=== PATIENT | male | born 1945 | race Hispanic/Latino ===

== ENCOUNTER → 2018-11-06 | Outpatient (CLI) | payer OTHER | END | disposition home or self-care (01) | LOC: OIH 13:25 | PROVIDERS: ATTEND Internal Medicine | DX: I10 Essential (primary) hypertension (principal); I70.0 Atherosclerosis of aorta | CPT/HCPCS: 71046 ==

== ENCOUNTER → 2019-02-14 | Outpatient (CLI) | payer OTHER | END | disposition home or self-care (01) | LOC: OIH 09:33 | PROVIDERS: ATTEND Internal Medicine | DX: M23.8X1 Other internal derangements of right knee (principal) | CPT/HCPCS: 73560 ==

== ENCOUNTER 2019-02-23 19:10 | Observation (INO) | payer OTHER ==
[~2019-02-23] VITALS: Ht 172.7 cm; Wt 102.1 kg
[2019-02-23 19:38] LABS: BASOPHILS % (AUTO) 1.3 % (0.0-5.0); EOSINOPHILS % (AUTO) 2.2 % (0.0-8.0); HEMATOCRIT 41.3 % (42-54); LYMPHOCYTES % (AUTO) 28.3 % (21.0-51.0); MEAN CORPUSCULAR HEMOGLOBIN 30.7 pg (27.0-33.0); MEAN CORPUSCULAR HGB CONC 33.5 g/dL (32.0-36.0); MEAN CORPUSCULAR VOLUME 91.5 fL (79-99); MONOCYTES % (AUTO) 9.2 % (3.0-13.0); PLATELET COUNT (AUTO) 234 K/uL (130-400); RED BLOOD CELL COUNT(AUTO) 4.52 MIL/uL (4.50-6.20); RED CELL DISTRIBUTION WIDTH 13.6 % (11.0-15.5); WHITE BLOOD COUNT (AUTO) 12.1 K/uL (4.8-10.8)
[2019-02-23 19:52] LABS: CREATININE 1.7 mg/dL (0.5-1.5); POTASSIUM 3.6 mmol/L (3.5-5.1)
[2019-02-23 19:54] LABS: INR 0.95 (0.85-1.15); PARTIAL THROMBOPLASTIN TIME 28.5 SEC (26.3-35.5)
[2019-02-23 19:56] LABS: ALBUMIN 3.2 g/dL (3.5-5.0); BILIRUBIN,TOTAL 0.3 mg/dL (0.2-1.0); TOTAL PROTEIN, SERUM 6.8 g/dL (6.0-8.3)
[2019-02-23 20:54] LABS: APPEARANCE,URINE Clear (CLEAR); BILIRUBIN,URINE Negative (NEGATIVE); COLOR,URINE Yellow (YELLOW); GLUCOSE, URINE (UA) Negative (NEGATIVE); KETONES,URINE Negative (NEGATIVE); LEUKOCYTE ESTERASE ,URINE Negative (NEGATIVE); NITRATE,URINE Negative (NEGATIVE); OCCULT BLOOD,URINE Negative (NEGATIVE); PH,URINE 5.5 (5.0-8.0); PROTEIN,URINE POS 1+ mg/dL (NEGATIVE); UROBILINOGEN,URINE 0.2 mg/dL (0.2-1.0)
[2019-02-23 21:18] LABS: BACTERIA,URINE None Seen /HPF (None Seen); MUCUS,URINE Few LPF (None Seen); RBC,URINE None Seen /HPF (0-1); SQUAMOUS EPITHELIAL CELL,UR 0-2 /HPF (0-2)
[2019-02-24 06:33] LABS: BASOPHILS % (AUTO) 0.5 % (0.0-5.0); EOSINOPHILS % (AUTO) 2.8 % (0.0-8.0); LYMPHOCYTES % (AUTO) 28.5 % (21.0-51.0); MEAN CORPUSCULAR HEMOGLOBIN 31.8 pg (27.0-33.0); MEAN CORPUSCULAR HGB CONC 34.7 g/dL (32.0-36.0); MEAN CORPUSCULAR VOLUME 91.6 fL (79-99); MONOCYTES % (AUTO) 8.6 % (3.0-13.0); NEUTROPHILS % (AUTO) 59.6 % (40.0-77.0); NUCLEATED RED BLOOD CELLS 0.1 % (0.0-0.19); PLATELET COUNT (AUTO) 214 K/uL (130-400); RED CELL DISTRIBUTION WIDTH 13.4 % (11.0-15.5); WHITE BLOOD COUNT (AUTO) 10.3 K/uL (4.8-10.8)
[2019-02-24 06:37] LABS: CREATININE 1.3 mg/dL (0.5-1.5); POTASSIUM 3.8 mmol/L (3.5-5.1)
[2019-02-24 10:38] LABS: CREATINE KINASE, TOTAL 196 U/L (21-232); MYOGLOBIN 151 ng/mL (10-92); TROPONIN I < 0.04 ng/mL (0.00-0.06)
--- NOTE | 2019-02-24 11:08 | NUR ---
ER ADMIT PATIENT RECEIVED FROM ER VIA WHEELCHAIR ACCOMPANIED BY . BOTH HAVE BEEN ORIENTED TO ROOM AND USE OF CALL LIGHT. PATIENT APPEARS COMFORTABLE, NO SIGNS OF DISTRESS NOTED. BED IS IN LOWEST POSITION AND LOCKED WITH PERSONAL BELONGINGS WITHIN REACH. DR. WADE IS IN THE ROOM ASSESSING PATIENT.
[2019-02-24] MEDS ORDERED: FINA5TAB41 PO (11:21)
[2019-02-24] MEDS ORDERED: LISI1TAB11 PO (11:21)
[2019-02-24 11:29] VITALS: BP 149/72
[2019-02-24] MEDS ORDERED: ALPRAZOLAM 0.25 MG TABLET PO SCH (11:30)
[2019-02-24] MEDS ORDERED: PNEUMOCOCCAL VACCINE POLYVALENT 0.5 ML/VIAL [PPV] IM SCH (11:45)
[2019-02-24] MEDS: HYDROCHLOROTHIAZIDE 25 MG TABLET PO SCH (11:56)
[2019-02-24] MEDS: LISINOPRIL 20 MG TABLET PO SCH (11:56)
[2019-02-24 16:18] VITALS: BP 138/77
[2019-02-24] MEDS: ACETAMINOPHEN 325 MG TAB PO PRN (16:37)
[2019-02-24 20:00] VITALS: BP 122/75
[2019-02-25 00:07] VITALS: BP 110/50
[2019-02-25 04:00] VITALS: BP 126/73
[2019-02-25] MEDS: ACETAMINOPHEN 325 MG TAB PO PRN (05:19)
[2019-02-25 05:41] LABS: BASOPHILS % (AUTO) 0.6 % (0.0-5.0); EOSINOPHILS % (AUTO) 1.3 % (0.0-8.0); HEMATOCRIT 46.1 % (42-54); LYMPHOCYTES % (AUTO) 21.3 % (21.0-51.0); MEAN CORPUSCULAR HEMOGLOBIN 30.4 pg (27.0-33.0); MEAN CORPUSCULAR HGB CONC 33.1 g/dL (32.0-36.0); MEAN CORPUSCULAR VOLUME 91.7 fL (79-99); MONOCYTES % (AUTO) 7.4 % (3.0-13.0); NEUTROPHILS % (AUTO) 69.4 % (40.0-77.0); PLATELET COUNT (AUTO) 263 K/uL (130-400); RED BLOOD CELL COUNT(AUTO) 5.02 MIL/uL (4.50-6.20); RED CELL DISTRIBUTION WIDTH 13.7 % (11.0-15.5); WHITE BLOOD COUNT (AUTO) 14.4 K/uL (4.8-10.8)
[2019-02-25 05:52] LABS: CREATININE 1.4 mg/dL (0.5-1.5); POTASSIUM 3.7 mmol/L (3.5-5.1)
--- NOTE | 2019-02-25 06:40 | NUR ---
ROUNDING, DOCTOR DARRICK WELLINGTONING IN PT ROOM AT THIS TIME. UPDATED PT ON POC, QUESTIONS AND CONCERNS FROM PT WERE ADDRESSED BY . NEW ORDERS RECEIVED, REFER TO EMR. Addendum: 02/25/19 at 0728 by ROSHNI POWELL RN Amended: Links added.
[2019-02-25] MEDS ORDERED: ONDANSETRON HCL 4 MG/2 ML VIAL IVP PRN (06:45)
[2019-02-25 08:21] VITALS: BP 137/75
[2019-02-25] MEDS: HYDROCHLOROTHIAZIDE 25 MG TABLET PO SCH (08:48)
[2019-02-25] MEDS: FINASTERIDE 5 MG TABLET PO SCH (08:48)
[2019-02-25] MEDS: LISINOPRIL 20 MG TABLET PO SCH (08:48)
[2019-02-25] MEDS ORDERED: GADODIAMIDE 10 MMOL/20 ML VIAL IV ONE (09:59)
[2019-02-25 11:37] VITALS: BP 138/73
--- NOTE | 2019-02-25 16:18 | NUR ---
DCP CM met with pt discussed dc plans. Pt is independent prior to admission, live at home with spouse. Denies any equipments/services. Pt feels safe to go back home, still drives, spouse able to assist with transportation and needs as necessary. DC plan to home once stable. CM to cont to follow up. Addendum: 02/25/19 at 1620 by TEJ GERONIMO LVN CM Amended: Links added.
[2019-02-25 16:54] VITALS: BP 146/70
[2019-02-25 20:03] VITALS: BP 133/69
[2019-02-26 00:01] VITALS: BP 134/73
[2019-02-26 04:00] VITALS: BP 119/66
[2019-02-26 07:48] VITALS: BP 129/77
[2019-02-26] MEDS: LISINOPRIL 20 MG TABLET PO SCH (08:19)
[2019-02-26] MEDS: HYDROCHLOROTHIAZIDE 25 MG TABLET PO SCH (08:19)
[2019-02-26] MEDS: FINASTERIDE 5 MG TABLET PO SCH (08:19)
[2019-02-26 11:55] VITALS: BP 146/67
--- NOTE | 2019-02-26 12:05 | NUR ---
DISCHARGE DISCHARGE TEACHING DONE WITH PATIENT AND USING TEACHBACK METHOD, VERBALIZED UNDERSTANDING. NO NOTED SOB OR DISTRESS. PT AWARE OF NEW MEDICATION RECOMMENDATION OF ASPIRIN 81MG PO DAILY BY DR. UNGER. PT AWARE OF NEED TO ATTEND DR. HO[place]ORTH APPOINTMENT. IV REMOVED CATH TIP INTACT. TELEMONITOR REMOVED AND RETURNED. PENDING TO BE TRANSFERRED OUT VIA PRIVATE VEHICLE.
== END 2019-02-26 12:25 | disposition home or self-care (01) ==
LOC: EDH 19:10 → EDHIP 19:11 → 4AH 02-24 11:22
PROVIDERS: ADMIT Internal Medicine; ATTEND Internal Medicine
DX: R55 Syncope and collapse (principal); E11.9 Type 2 diabetes mellitus without complications; I10 Essential (primary) hypertension; V89.2XXA Person injured in unspecified motor-vehicle accident, traffic, initial encounter; Y93.89 Activity, other specified; Y92.410 Unspecified street and highway as the place of occurrence of the external cause; Y99.8 Other external cause status; Z79.899 Other long term (current) drug therapy; Z23 Encounter for immunization
CPT/HCPCS: 36415 ×3; 70450; 70553; 71250; 72125; 74176; 80048 ×2; 80053; 81001; 82550 ×3; 83874; 84484 ×3; 85025 ×3; 85378; 85610; 85730; 90471; 90732; 93005; 93306; 93880; 93970; 95816; 99284; A9579; G0378 ×61

== ENCOUNTER → 2019-03-12 | Outpatient (CLI) | payer OTHER ==
[~2019-03-12] MED LIST: FINA5TAB41 PO; LISI1TAB11 PO
== END | disposition home or self-care (01) ==
LOC: SHCH 13:01
PROVIDERS: ATTEND Internal Medicine Cardiovascular Disease
DX: I51.7 Cardiomegaly (principal); I35.8 Other nonrheumatic aortic valve disorders
CPT/HCPCS: 93306

== ENCOUNTER → 2019-10-28 | Outpatient (CLI) | payer OTHER ==
[~2019-10-28] MED LIST changes: -LISI1TAB11 PO; +LISI1TAB28 PO
== END | disposition home or self-care (01) ==
LOC: OIH 10:51
PROVIDERS: ATTEND Internal Medicine
DX: I70.0 Atherosclerosis of aorta (principal); I10 Essential (primary) hypertension
CPT/HCPCS: 71046

== ENCOUNTER → 2024-12-24 | Outpatient (CLI) | payer OTHER ==
[~2024-12-24] MED LIST changes: -LISI1TAB28 PO; +LISI1TAB51 PO
--- NOTE | 2024-12-25 00:52 | HMCSR ---
APPROVED REPORT EXAM: Two-dimensional and M-mode echocardiogram with Doppler and color Doppler. INDICATION ICD: Non-rheumatic aortic valve stenosis I35.0 2D Dimensions RVDd4.2 cmLVEF(%)39.6 (>50%)LVED Vol(simp.)110.2 mL IVSd1.1 (0.7-1.1cm)FS(%)19 %LVES Vol(simp.)41.7 mL LVDd4.1 (3.8-5.6cm)LA (2D)4.8 (1.6-4.0cm)LVEF(%, simp.)62 % PWd1.4 (0.7-1.1cm)Ao Root(2D)3.3 (2.0-3.7cm)LA ESV INDEX (BP)31.05 mL/m2 LVDs3.4 (2.5-4.0cm)LVOT diam2.3 (1.8-2.4cm) IVC diam1.6 cm M-Mode Dimensions EPSS0.9 cm LA (MM)4.5 (1.6-4.0cm) Ao Root(MM)2.9 (2.0-3.7cm) Aortic Valve AoV Vmax1.0 m/Markus Peak GR3.9 mmHgLVOT Vmax0.9 m/s AoV VTI0.2 mAo Mean GR2.2 mmHgLVOT VTI0.18 m GIRISH (VMAX)3.1 cm2Al P1/[id number] msAVA (VTI) 3.1 cm2 Mitral Valve MV E Vmax43.2 cm/sDECEL Iexe179 ms MV A Vmax78.3 cm/sP 1/2 T40 ms E/A ratio0.6MVA (PHT)5.5 cm2 TDI E/E' Medial8.6 Medial E' Peak V5.00 cm/s Tricuspid Valve TR Vmax2.7 m/sRVSP29.8 mmHg TR Peak GR29.8 mmHg Left Ventricle The left ventricle is normal size. No regional wall motion abnormalities noted. Mild concentric left ventricular hypertrophy. Left ventricle systolic function is normal, estimated LVEF 55%. Indeterminat e diastolic dysfunction. Right Ventricle The right ventricle is normal size. The right ventricular systolic function is normal. Atria The left atrium size is normal. The right atrium is dilated. Aortic Valve The aortic valve is normal in structure. The leaflets are mildly thickened and calcified. Mild to mod erate aortic regurgitation. There is no aortic valvular stenosis. Mitral Valve The mitral valve is normal in structure. The leaflets are mildly thickened and calcified. Mild mitral regurgitation. There is no mitral valve stenosis. Tricuspid Valve The tricuspid valve is normal in structure. Mild tricuspid regurgitation. RVSP is 30 mmHg. Pulmonic Valve Pulmonic valve is not well visualized. Great Vessels The aortic root is normal in size. The IVC is normal in size and collapses >50% with inspiration. Pericardium There is no pericardial effusion. Conclusion The right atrium is dilated. Mild concentric left ventricular hypertrophy. No regional wall motion abnormalities noted. Indeterminate diastolic dysfunction. Mild to moderate aortic regurgitation. Mild mitral regurgitation. Mild tricuspid regurgitation. PASP is 33 mmHg. There is no pericardial effusion.
== END | disposition home or self-care (01) ==
LOC: RAH 12:26
DX: I08.3 Combined rheumatic disorders of mitral, aortic and tricuspid valves (principal)
CPT/HCPCS: 93306